=== PATIENT | male | born 1990 | race African-American/Black ===

== ENCOUNTER 2023-02-21 01:03 | Emergency (ER) | payer OTHER, SELFPAY ==
--- NOTE | ~2023-02-21 | CT_ITS ---
Non-contrast CT scan of the Abdomen and Pelvis Clinical indication: Flank pain Technique: 2.5 mm axial scans were obtained through the abdomen and pelvis without intravenous or or al contrast. Dose reduction technique was used on this scan by utilizing automated exposure control a nd iterative reconstruction technique. The dose-length product (DLP) was 775.43 mGy-cm. Findings: Images through the lung bases reveal no abnormalities. Small nonobstructing right renal stone measures 2 mm. No left renal stones seen. No ureteral stone or hydronephrosis on either side. The liver, spleen, pancreas, gallbladder, and adrenals appear normal. There is no aortic aneurysm. There is no evidence of bowel obstruction. No evidence for appendicitis. Images through the pelvis were performed. There is no evidence of ascites or lymphadenopathy. Urinary bladder unremarkable. No pelvic mass evident. Impression: Small nonobstructing right renal stones, as above. Reviewed, dictated and finalized at [facility]. Impression: Small nonobstructing right renal stones, as above.
[2023-02-21 01:13] VITALS: BP 128/79; PULSE 70; RESP 16; TEMP 36.6; O2SAT 97
[2023-02-21 01:17] LABS: Basophils Percent Auto 0.7 % (0.2-1.2); Eosinophils Absolute Auto 0.2 K/mm3 (0-0.3); Hematocrit 42.9 % (42.0-52.0); Hemoglobin 14.3 g/dL (14.0-18.0); Immature Granulocyte Absolute 0.01 K/mm3 (0.00-0.031); Immature Granulocyte Percent A 0.2 % (0-0.5); Lymphocytes Absolute Auto 3.38 K/mm3 (0.9-3.2); Lymphocytes Percent Auto 58.1 % (18.3-44.2); Mean Corpuscular HGB Conc 33.3 g/dl (32-36); Mean Corpuscular Hemoglobin 32.2 pg (26-34); Mean Corpuscular Volume 96.6 fl (80-100); Mean Platelet Volume 9.7 fl (7.4-10.4); Monocytes Absolute Auto 0.4 K/mm3 (0.1-0.6); Monocytes Percent Auto 7.6 % (2.6-8.5); Neutrophils Absolute Auto 1.7 K/mm3 (1.3-6.7); Neutrophils Percent Auto 29.4 % (45.5-73.1); Platelet Count Result 261 k/mm3 (150-375); Red Blood Count 4.44 M/mm3 (4.6-6.20); Red Cell Distribution Width 13.1 % (11.5-14.5); White Blood Count 5.8 K/mm3 (4.5-10.0)
[2023-02-21 01:27] LABS: Alanine Aminotransferase 32 U/L (6-50); Albumin Level 4.4 g/dL (3.5-5.1); Alkaline Phosphatase 65 U/L (38-126); Anion Gap 8 mmol/L (8-16); Aspartate Amino Transferase 33 U/L (17-59); Bilirubin,Total 0.5 mg/dL (0.2-1.3); Blood Urea Nitrogen 14 mg/dL (9-20); Calcium 8.8 mg/dL (8.4-10.2); Carbon Dioxide 25 mmol/L (22-30); Chloride 104 mmol/L (98-107); Estimated CRCL calculation 100 ml/min; Estimated Glomerular Filt Rate > 60; Glucose 111 mg/dL (65-110); Lipase 43 U/L (23-300); Potassium 3.7 mmol/L (3.4-5.0); Sodium 137 mmol/L (137-145)
[2023-02-21 01:28] LABS: Appearance Urine Clear (Clear); Bacteria Urine None Seen /hpf; Bilirubin Urine Negative (Negative); Blood Urine Negative (Negative); Color Urine Dark Yellow (Yellow); Glucose Urine UA Negative (Negative); Ketones Urine Negative (Negative); Leukocyte Esterase Ur Trace LEU/UL (Negative); Nitrate Urine Negative (Negative); Non Pathogenic Casts 0-2; Protein Urine Negative (Negative); RBC Urine 0-2 /hpf (0-2); Squamous Epithelial Cell Urine None seen /hpf (Few); WBC Urine 21-50 /hpf
[2023-02-21 01:28] LABS: Lactic Acid Reflex 0.8 mmol/L (0.7-2.0)
[2023-02-21 01:36] LABS: Specific Grav Ur 1.037 (1.001-1.035)
[2023-02-21 01:38] LABS: Add Urine Microscopic? YES
[2023-02-21 02:20] VITALS: BP 123/88; PULSE 60; RESP 18; TEMP 36.9; O2SAT 98
[2023-02-21 02:24] VITALS: BP 123/88; PULSE 60; TEMP 36.9; O2SAT 98
--- NOTE | 2023-02-21 02:27 | ED.ABDPAIN ---
HPI - Abdominal Pain General Chief Complaint: Abdominal Pain Stated Complaint: left flank pain Time Seen by Provider: 02/21/23 02:09 History of Present Illness HPI narrative: Patient presents to the emergency department with left-sided flank pain. Pain ongoing for the past couple days. Initially started mid back then radiated to the left side. Patient denies nausea and vomiting. Denies all other review of systems. He has not taken anything for the pain prior to arrival. Related Data Allergies Allergy/AdvReac Type Severity Reaction Status Date / Time metoclopramide [From Reglan] Allergy Flushing Verified 02/21/23 02:26 Review of Systems Review of Systems: Negative except for what is documented in the HPI Exam Narrative: GENERAL: Well-appearing, well-nourished, and in no acute distress. HEAD: Normocephalic, atraumatic. EYES: PERRLA and EOMI. ENT: Nares clear, no rhinorrhea or epistaxis. Mucous membranes moist. NECK: Supple. CHEST: Clear to auscultation. No respiratory distress. HEART: Regular rate and rhythm. ABDOMEN: Soft, nontender, nondistended. EXTREMITIES: Normal range of motion. No edema. SKIN: Warm, dry, no rash. NEURO: No focal deficits. Alert and oriented x3. PSYCH: Normal mood and affect. Course Course Emergency Course: Differential diagnosis includes but not limited to kidney stone, musculoskeletal pain, UTI Vital Signs Vital signs: Vital Signs Temperature 36.6 C 02/21/23 01:13 Pulse Rate 70 02/21/23 01:13 Respiratory Rate 16 02/21/23 01:13 Blood Pressure 128/79 02/21/23 01:13 Pulse Oximetry 97 02/21/23 01:13 Oxygen Delivery Room Air 02/21/23 01:13 Temperature 36.9 C 02/21/23 02:24 Pulse Rate 60 02/21/23 02:24 Respiratory Rate 18 02/21/23 02:20 Blood Pressure 123/88 02/21/23 02:24 Pulse Oximetry 98 02/21/23 02:24 Oxygen Delivery Room Air 02/21/23 02:20 MDM - Abdominal Pain Lab Data 02/21/23 01:12 02/21/23 01:12 Labs: Lab Results 02/21/23 02/21/23 Range/Units 01:12 01:16 WBC 5.8 (4.5-10.0) K/mm3 RBC 4.44 L (4.6-6.20) M/mm3 Hgb 14.3 (14.0-18.0) g/dL Hct 42.9 (42.0-52.0) % MCV 96.6 (80-100) fl MCH 32.2 (26-34) pg MCHC 33.3 (32-36) g/dl RDW 13.1 (11.5-14.5) % Plt Count 261 (150-375) k/mm3 MPV 9.7 (7.4-10.4) fl Immature Gran % (Auto) 0.2 (0-0.5) % Neut % (Auto) 29.4 L (45.5-73.1) % Lymph % (Auto) 58.1 H (18.3-44.2) % [place] % (Auto) 7.6 (2.6-8.5) % Eos % (Auto) 4.0 (0-4.4) % Baso % (Auto) 0.7 (0.2-1.2) % Lymph # (Auto) 3.38 H (0.9-3.2) K/mm3 [place] # (Auto) 0.4 (0.1-0.6) K/mm3 Eos # (Auto) 0.2 (0-0.3) K/mm3 Baso # (Auto) 0.0 (0.0-0.1) K/mm3 Abs Immat Gran (auto) 0.01 (0.00-0.031) K/mm3 Absolute Neuts (auto) 1.7 (1.3-6.7) K/mm3 Absolute Nucleated RBC 0.0 (0.0-0.012) K/mm3 Nucleated RBC % 0.0 (0.0-0.2) % Sodium 137 (137-145) mmol/L Potassium 3.7 (3.4-5.0) mmol/L Chloride 104 (98-107) mmol/L Carbon Dioxide 25 (22-30) mmol/L Anion Gap 8 (8-16) mmol/L BUN 14 (9-20) mg/dL Creatinine 1.10 (0.7-1.3) mg/dL Estim Creat Clear Calc 100 ml/min Estimated GFR > 60 (59 - ) Glucose 111 H (65-110) mg/dL Lactic Acid 0.8 (0.7-2.0) mmol/L Calcium 8.8 (8.4-10.2) mg/dL Total Bilirubin 0.5 (0.2-1.3) mg/dL AST 33 (17-59) U/L ALT 32 (6-50) U/L Alkaline Phosphatase 65 (38-126) U/L Total Protein 8.0 (6.3-8.2) g/dL Albumin 4.4 (3.5-5.1) g/dL Lipase 43 (23-300) U/L Urine Color Dark yellow (Yellow) Urine Appearance Clear (Clear) Urine pH 6.0 (5.0-9.0) Ur Specific [place] 1.037 H (1.001-1.035) Urine Protein Negative (Negative) mg/dL Urine Glucose (UA) Negative (Negative) mg/dL Urine Ketones Negative (Negative) mg/dL Ur Blood (Man) Negative (Negative) Urine Nitrate Negative (Negative) Urine Bilirubin Negative (Ne
[2023-02-21] MEDS: IBUPROFEN 600 MG TABLET PO (02:38)
[2023-02-21] MEDS: LIDOCAINE 5% PATCH 1 PATCH TRANSDERM (02:38)
[2023-02-21 04:14] VITALS: BP 135/87; PULSE 64; RESP 18; O2SAT 100
--- NOTE | 2023-02-21 04:45 | ED.ABDPAIN ---
HPI - Abdominal Pain General Chief Complaint: Abdominal Pain Stated Complaint: left flank pain Time Seen by Provider: 02/21/23 02:09 History of Present Illness HPI narrative: Please see initial note regarding patient's presentation and physical exam Related Data Allergies Allergy/AdvReac Type Severity Reaction Status Date / Time metoclopramide [From Reglan] Allergy Flushing Verified 02/21/23 02:26 Review of Systems Review of Systems: Only positive review of systems left flank pain Exam Narrative: Exam grossly benign Course Vital Signs Vital signs: Vital Signs Temperature 36.6 C 02/21/23 01:13 Pulse Rate 70 02/21/23 01:13 Respiratory Rate 16 02/21/23 01:13 Blood Pressure 128/79 02/21/23 01:13 Pulse Oximetry 97 02/21/23 01:13 Oxygen Delivery Room Air 02/21/23 01:13 Temperature 36.9 C 02/21/23 02:24 Pulse Rate 64 02/21/23 04:14 Respiratory Rate 18 02/21/23 04:14 Blood Pressure 135/87 02/21/23 04:14 Pulse Oximetry 100 02/21/23 04:14 Oxygen Delivery Room Air 02/21/23 02:20 MDM - Abdominal Pain MDM Narrative Medical decision making narrative: Patient's CT scan is consistent with cystitis with diffuse bladder wall thickening and adjacent stranding. Patient has right renal calculi that are incidental findings no other acute abnormalities on CT. Patient has elevated white blood cells in his urine. GC pending. Will DC with doxycycline Lab Data 02/21/23 01:12 02/21/23 01:12 Labs: Lab Results 02/21/23 02/21/23 Range/Units 01:12 01:16 WBC 5.8 (4.5-10.0) K/mm3 RBC 4.44 L (4.6-6.20) M/mm3 Hgb 14.3 (14.0-18.0) g/dL Hct 42.9 (42.0-52.0) % MCV 96.6 (80-100) fl MCH 32.2 (26-34) pg MCHC 33.3 (32-36) g/dl RDW 13.1 (11.5-14.5) % Plt Count 261 (150-375) k/mm3 MPV 9.7 (7.4-10.4) fl Immature Gran % (Auto) 0.2 (0-0.5) % Neut % (Auto) 29.4 L (45.5-73.1) % Lymph % (Auto) 58.1 H (18.3-44.2) % [place] % (Auto) 7.6 (2.6-8.5) % Eos % (Auto) 4.0 (0-4.4) % Baso % (Auto) 0.7 (0.2-1.2) % Lymph # (Auto) 3.38 H (0.9-3.2) K/mm3 [place] # (Auto) 0.4 (0.1-0.6) K/mm3 Eos # (Auto) 0.2 (0-0.3) K/mm3 Baso # (Auto) 0.0 (0.0-0.1) K/mm3 Abs Immat Gran (auto) 0.01 (0.00-0.031) K/mm3 Absolute Neuts (auto) 1.7 (1.3-6.7) K/mm3 Absolute Nucleated RBC 0.0 (0.0-0.012) K/mm3 Nucleated RBC % 0.0 (0.0-0.2) % Sodium 137 (137-145) mmol/L Potassium 3.7 (3.4-5.0) mmol/L Chloride 104 (98-107) mmol/L Carbon Dioxide 25 (22-30) mmol/L Anion Gap 8 (8-16) mmol/L BUN 14 (9-20) mg/dL Creatinine 1.10 (0.7-1.3) mg/dL Estim Creat Clear Calc 100 ml/min Estimated GFR > 60 (59 - ) Glucose 111 H (65-110) mg/dL Lactic Acid 0.8 (0.7-2.0) mmol/L Calcium 8.8 (8.4-10.2) mg/dL Total Bilirubin 0.5 (0.2-1.3) mg/dL AST 33 (17-59) U/L ALT 32 (6-50) U/L Alkaline Phosphatase 65 (38-126) U/L Total Protein 8.0 (6.3-8.2) g/dL Albumin 4.4 (3.5-5.1) g/dL Lipase 43 (23-300) U/L Urine Color Dark yellow (Yellow) Urine Appearance Clear (Clear) Urine pH 6.0 (5.0-9.0) Ur Specific [place] 1.037 H (1.001-1.035) Urine Protein Negative (Negative) mg/dL Urine Glucose (UA) Negative (Negative) mg/dL Urine Ketones Negative (Negative) mg/dL Ur Blood (Man) Negative (Negative) Urine Nitrate Negative (Negative) Urine Bilirubin Negative (Negative) Urine Urobilinogen 1.0 (<2.0) mg/dL Leukocyte Esterase Rfl Trace H (Negative) SUMMER/UL Urine RBC 0-2 (0-2) /hpf Urine WBC 21-50 H /hpf Ur Squamous Epith Cells None seen (Few) /hpf Urine Bacteria None seen /hpf Urine Casts 0-2 C. trachomatis (PCR) Not detected (NOT DETECTE) N. gonorrhoeae (PCR) Not detected (NOT DETECTE) Imaging Data Radiologist's impression: ITS Impressions Abdomen/Pelvis CT 02/21/23 06:11 Impr
[2023-02-21] MEDS: DOXYCYCLINE HYCLATE 100 MG TABLET PO (05:01)
[2023-02-21] MEDS: CIPROFLOXACIN 400 MG/D5W 200ML 200 ML 200 MG IVPB (05:06)
[2023-02-21 06:30] LABS: Chlamydia trachomatis NOT DETECTED (NOT DETECTE); Neisseria gonorrhoeae PCR NOT DETECTED (NOT DETECTE)
[2023-02-21 07:07] VITALS: BP 120/89; PULSE 89; RESP 16; O2SAT 100
== END 2023-02-21 07:07 | disposition home or self-care (01) ==
PROVIDERS: Emergency Provider Emergency Medicine
DX: N30.00 Acute cystitis without hematuria (principal); N20.0 Calculus of kidney
CPT/HCPCS: 36415; 74176; 80053; 81001; 83605; 83690; 85025; 87086; 87491; 87591; 96365; 99284; A9270; J0744

== ENCOUNTER 2023-04-22 11:58 | Emergency (ER) | payer SELFPAY ==
--- NOTE | ~2023-04-22 | CT_ITS ---
EXAMINATION: CT abdomen pelvis w con DATE: 04/22/2023 16:10 INDICATION: Left lower abdomen pain TECHNIQUE: Computed tomography (CT) of the abdomen and pelvis was performed with 100 cc Omnipaque 350 intravenous contrast. The dose-length product was 665.03 mGy-cm. Automated exposure control and iter ative reconstruction technique were employed. COMPARISON: CT dated 02/21/2023. FINDINGS: Lung bases unremarkable. Heart size normal. No significant pleural or pericardial effusion. The liver, spleen, pancreas, adrenal glands and left kidney are unremarkable. There are nonobstructi ng right renal stones measuring 3 mm or less. No ureteral stones or hydronephrosis. Nonobstructive bowel gas pattern. Gallbladder is present. No abnormal pelvic masses or fluid collecti ons. No evidence for diverticulitis. Normal appendix. IMPRESSION: 1. No acute abdominal abnormality. 2: Nonobstructing right nephrolithiasis. Reviewed, dictated and finalized at location A. [facility]
[2023-04-22 12:07] VITALS: BP 126/78; PULSE 104; RESP 20; TEMP 36.1; O2SAT 100
[2023-04-22 13:00] VITALS: BP 110/72; PULSE 69; RESP 18; TEMP 36.5; O2SAT 100
[2023-04-22 13:23] LABS: Basophils Percent Auto 0.3 % (0.2-1.2); Eosinophils Absolute Auto 0.1 K/mm3 (0-0.3); Hematocrit 42.2 % (42.0-52.0); Hemoglobin 14.1 g/dL (14.0-18.0); Immature Granulocyte Absolute 0.02 K/mm3 (0.00-0.031); Immature Granulocyte Percent A 0.2 % (0-0.5); Lymphocytes Absolute Auto 1.41 K/mm3 (0.9-3.2); Lymphocytes Percent Auto 15.4 % (18.3-44.2); Mean Corpuscular HGB Conc 33.4 g/dl (32-36); Mean Corpuscular Volume 95.7 fl (80-100); Mean Platelet Volume 9.8 fl (7.4-10.4); Monocytes Absolute Auto 0.6 K/mm3 (0.1-0.6); Monocytes Percent Auto 6.2 % (2.6-8.5); Neutrophils Percent Auto 76.9 % (45.5-73.1); Platelet Count Result 257 k/mm3 (150-375); Red Blood Count 4.41 M/mm3 (4.6-6.20); Red Cell Distribution Width 12.8 % (11.5-14.5); White Blood Count 9.1 K/mm3 (4.5-10.0)
[2023-04-22 13:35] LABS: Alanine Aminotransferase 34 U/L (6-50); Albumin Level 4.2 g/dL (3.5-5.1); Alkaline Phosphatase 59 U/L (38-126); Anion Gap 7 mmol/L (8-16); Aspartate Amino Transferase 34 U/L (17-59); Bilirubin,Total 0.4 mg/dL (0.2-1.3); Blood Urea Nitrogen 11 mg/dL (9-20); Calcium 8.3 mg/dL (8.4-10.2); Carbon Dioxide 24 mmol/L (22-30); Chloride 108 mmol/L (98-107); Estimated CRCL calculation 121 ml/min; Estimated Glomerular Filt Rate > 60; Glucose 92 mg/dL (65-110); Lipase 40 U/L (23-300); Potassium 4.2 mmol/L (3.4-5.0); Sodium 139 mmol/L (137-145)
[2023-04-22 13:48] LABS: Appearance Urine Clear (Clear); Bacteria Urine None Seen /hpf; Bilirubin Urine Negative (Negative); Blood Urine Negative (Negative); Color Urine Yellow (Yellow); Glucose Urine UA Negative (Negative); Ketones Urine Negative (Negative); Leukocyte Esterase Ur Trace LEU/UL (Negative); Need Manual Microscopic Reviewed; Nitrate Urine Negative (Negative); Non Pathogenic Casts 0-2; Protein Urine Negative (Negative); RBC Urine 0-2 /hpf (0-2); Specific Grav Ur 1.025 (1.001-1.035); Squamous Epithelial Cell Urine None seen /hpf (Few); pH Urine 7.5 (5.0-9.0)
[2023-04-22 13:49] LABS: Add Urine Microscopic? YES
[2023-04-22] MEDS: LACTATED RINGERS 1,000 ML 999 ML IV CONT (15:48)
--- NOTE | 2023-04-22 15:48 | ED.ABDPAIN ---
HPI - Abdominal Pain General Chief Complaint: Abdominal Pain Stated Complaint: abdominal pain/v/d Time Seen by Provider: 04/22/23 14:36 Source: patient and RN notes reviewed Mode of arrival: ambulatory Limitations: no limitations History of Present Illness HPI narrative: This is a 33 year old male who presents for evaluation of left lower abdominal pain. He states this morning he developed left lower abdominal pain with nausea, vomiting and diarrhea. He reports diarrhea was nonbloody and he had 1 episode. He also reports 1 episode of emesis but he is still nauseous. He states his pain is 8/10 currently. HE denies body aches, fever , chills, cough, sore thoat, runny nose. He denies sick contacts of new diet Related Data Allergies Allergy/AdvReac Type Severity Reaction Status Date / Time metoclopramide [From Reglan] Allergy Flushing Verified 04/22/23 11:59 Review of Systems Constitutional: Constitutional: Denies weakness Cardiovascular: Cardiovascular: Denies syncope, Denies rapid heart rate, Denies irregular heart rhythm, Denies leg edema and Denies dyspnea Respiratory: Respiratory: Denies chest congestion, Denies hemoptysis, Denies excessive phlegm production and Denies dyspnea Gastrointestinal: Gastrointestinal: Reports abdominal pain, Denies hematochezia, Reports diarrhea, Reports nausea and Reports vomiting Genitourinary: Genitourinary: Denies hematuria, Denies dysuria, Denies penile discharge and Denies testicular pain Musculoskeletal: Musculoskeletal: Denies joint swelling, Denies loss of height and Denies muscle weakness Neurologic: Denies syncope, Denies focal weakness and Denies weakness PMFSH Past Medical History Medical History (Updated 04/22/23 @ 17:39 by Hina Guido MD) Asthma Surgical History Surgical History (Updated 04/22/23 @ 15:49 by Hina Guido MD) No pertinent past surgical history Social History Social History (Updated 04/22/23 @ 15:49 by Hina Guido MD) Smoking status: Never smoker Exam Const: General: no acute distress and alert Nutritional Appearance: well nourished Orientation/consciousness: patient oriented x3 HENMT: Head: normal to inspection Ears: external ears normal Eyes: EOM: EOMs intact bilaterally Neck: Neck: normal visual inspection Chest: Chest palpation & inspection: normal inspection of the chest Resp: Effort & Inspection: normal respiratory effort Auscultation: clear to auscultation bilaterally Cardio: Rate: regular rate Rhythm: regular rhythm Heart sounds: no murmurs GI: GI Palp: Yes Soft to palpation, Yes Tenderness to palpation present (GI), No Guarding due to palpation present (GI) and No Rigid due to palpation Auscultation: normal bowel sounds Back/Spine/Pelvis: Back: no CVA tenderness Skin: General skin exam: normal color Rashes: no rashes Neuro: General: patient oriented x3, moves all extremities and CN's II-XI intact bilaterally Psych: Mental Status: mental status grossly normal Affect: normal affect Attitude: cooperative Course Vital Signs Vital signs: Vital Signs Temperature 97.0 F L 04/22/23 12:07 Pulse Rate 104 H 04/22/23 12:07 Respiratory Rate 20 04/22/23 12:07 Blood Pressure 126/78 04/22/23 12:07 Pulse Oximetry 100 04/22/23 12:07 Oxygen Delivery Room Air 04/22/23 12:07 Temperature 97.0 F L 04/22/23 12:07 Pulse Rate 104 H 04/22/23 12:07 Respiratory Rate 20 04/22/23 12:07 Blood Pressure 126/78 04/22/23 12:07 Pulse Oximetry 100 04/22/23 12:07 Oxygen Delivery Room Air 04/22/23 12:07 MDM - Abdominal Pain MDM Narrative Medical decision making narrative: labs ordered. CT abdomen and pelvis ordered for evaluation of LLQ. NS 1 liter bolus ordered and given along with zofran 4 mg IV and toradol 15 mg IV I Discussed with patient CT unremarkable UA is abnormal but patient does not have symptoms. I reviewed his last UA that culture was negative. Differential
[2023-04-22] MEDS: ONDANSETRON INJ 4 MG/2 ML VIAL IV PUSH (15:49)
[2023-04-22] MEDS: KETOROLAC 15 MG/ML VIAL (*BKC) IV PUSH (15:49)
[2023-04-22 17:51] VITALS: BP 113/74; PULSE 71; RESP 18; O2SAT 100
== END 2023-04-22 17:50 | disposition home or self-care (01) ==
PROVIDERS: Emergency Provider General Practice
DX: K52.9 Noninfective gastroenteritis and colitis, unspecified (principal); J45.909 Unspecified asthma, uncomplicated; N20.0 Calculus of kidney; Z87.442 Personal history of urinary calculi
CPT/HCPCS: 36415; 74177; 80053; 81001; 83690; 85025; 87086; 96361; 96374; 96375; 99284; J1885; J2405; J7120; Q9967

== ENCOUNTER 2023-06-04 20:56 | Emergency (ER) | payer SELFPAY ==
--- NOTE | ~2023-06-04 | CT_ITS ---
EXAMINATION: CT abdomen pelvis wo con DATE: 06/04/2023 23:42 INDICATION: Right flank pain TECHNIQUE: Computed tomography (CT) of the abdomen and pelvis was performed without intravenous contr ast. The dose-length product (DLP) was 652.38 mGy-cm. Automated exposure control and iterative recons truction technique were employed. COMPARISON: 04/22/2023 FINDINGS: The lung bases are clear. The heart size is normal. The liver, spleen, pancreas, gallbladde r, and adrenal glands are normal. There are nonobstructing stones of the right kidney lower pole anna uring up to 2 mm. The left kidney is unremarkable. There are no stones in the ureters or bladder. No hydronephrosis or hydroureter. No pathologically enlarged abdominal or pelvic lymph nodes are identif ied. No free intraperitoneal gas or evidence of bowel obstruction. The appendix is normal. IMPRESSION: 1. No CT correlate for the patient's symptoms. 2. Nonobstructing right nephrolithiasis. Reviewed, dictated and finalized at location F. [employer]
[2023-06-04 21:20] VITALS: BP 121/76; PULSE 78; RESP 16; TEMP 36.3; O2SAT 100
[2023-06-04 21:34] LABS: Basophils Absolute Auto 0.1 K/mm3 (0.0-0.1); Basophils Percent Auto 0.8 % (0.2-1.2); Eosinophils Absolute Auto 0.2 K/mm3 (0-0.3); Eosinophils Percent Auto 3.4 % (0-4.4); Hematocrit 44.1 % (42.0-52.0); Hemoglobin 14.1 g/dL (14.0-18.0); Immature Granulocyte Absolute 0.01 K/mm3 (0.00-0.031); Immature Granulocyte Percent A 0.2 % (0-0.5); Lymphocytes Absolute Auto 3.01 K/mm3 (0.9-3.2); Lymphocytes Percent Auto 46.3 % (18.3-44.2); Mean Corpuscular Hemoglobin 31.4 pg (26-34); Mean Corpuscular Volume 98.2 fl (80-100); Monocytes Absolute Auto 0.5 K/mm3 (0.1-0.6); Monocytes Percent Auto 8.2 % (2.6-8.5); Neutrophils Absolute Auto 2.7 K/mm3 (1.3-6.7); Neutrophils Percent Auto 41.1 % (45.5-73.1); Platelet Count Result 279 k/mm3 (150-375); Red Blood Count 4.49 M/mm3 (4.6-6.20); Red Cell Distribution Width 12.9 % (11.5-14.5); White Blood Count 6.5 K/mm3 (4.5-10.0)
[2023-06-04 21:41] LABS: Appearance Urine Clear (Clear); Bacteria Urine None Seen /hpf; Bilirubin Urine Negative (Negative); Blood Urine Negative (Negative); Color Urine Yellow (Yellow); Glucose Urine UA Negative (Negative); Ketones Urine Negative (Negative); Leukocyte Esterase Ur 1+ LEU/UL (Negative); Nitrate Urine Negative (Negative); Non Pathogenic Casts 0-2; Protein Urine Negative (Negative); RBC Urine 0-2 /hpf (0-2); Specific Grav Ur 1.016 (1.001-1.035); Squamous Epithelial Cell Urine None seen /hpf (Few); Urobilinogen Urine 0.2 mg/dL (<2.0); WBC Urine 21-50 /hpf
[2023-06-04 21:44] LABS: Add Urine Microscopic? YES
[2023-06-04 21:46] LABS: Alanine Aminotransferase 38 U/L (6-50); Albumin Level 4.4 g/dL (3.5-5.1); Alkaline Phosphatase 74 U/L (38-126); Anion Gap 7 mmol/L (8-16); Aspartate Amino Transferase 31 U/L (17-59); Bilirubin,Total 0.4 mg/dL (0.2-1.3); Blood Urea Nitrogen 11 mg/dL (9-20); Calcium 8.9 mg/dL (8.4-10.2); Carbon Dioxide 26 mmol/L (22-30); Chloride 105 mmol/L (98-107); Estimated CRCL calculation 121 ml/min; Estimated Glomerular Filt Rate > 60; Glucose 96 mg/dL (65-110); Potassium 3.9 mmol/L (3.4-5.0); Sodium 138 mmol/L (137-145)
[2023-06-04 23:18] VITALS: BP 111/74; PULSE 61; RESP 15; TEMP 36.4; O2SAT 100
[2023-06-05] MEDS: ACETAMINOPHEN 500 MG TABLET 1000 MG PO (00:14)
[2023-06-05] MEDS: KETOROLAC (*BKC) 60 MG/2 ML VIAL IM (00:15)
--- NOTE | 2023-06-05 00:41 | ED.ABDPAIN ---
HPI - Abdominal Pain General Chief Complaint: Abdominal Pain Stated Complaint: right flank pain, hx of stones Time Seen by Provider: 06/04/23 23:15 Source: patient Mode of arrival: ambulatory Limitations: no limitations History of Present Illness HPI narrative: Patient is a 33-year-old male who presents the ED with report of right flank pain. Patient reports pain began yesterday and was mild at first, but became more severe today. Worse with movement. Radiates around to his right lower abdomen. He reports similar pain in the past related to kidney stones. He reported 1 episode of diarrhea and a small amount of white penile discharge, denies nausea, vomiting, fevers, dysuria, hematuria. Denies concern for STDs. Denies heavy lifting or strenuous activity. He has not tried anything for pain. Related Data Allergies Allergy/AdvReac Type Severity Reaction Status Date / Time metoclopramide [From Reglan] Allergy Flushing Verified 04/22/23 11:59 Review of Systems Review of Systems: CONSTITUTIONAL: Denies fever, chills, or sweats. GASTROINTESTINAL: See HPI. GENITOURINARY: See HPI. MUSCULOSKELETAL: See HPI. All systems reviewed & are unremarkable except as noted in HPI and below PMFSH Past Medical History Medical History Asthma Surgical History Surgical History No pertinent past surgical history Social History Social History Smoking status: Never smoker Exam Narrative: GENERAL: Well appearing, well-nourished, non-toxic, in no acute distress. HEAD: Normocephalic, atraumatic. RESPIRATORY: Airway patent, respirations nonlabored. Clear to auscultation bilaterally, no rales, rhonchi, wheezing. CARDIOVASCULAR: Regular rate and rhythm. ABDOMINAL: Soft, mild tenderness in RLQ, nondistended. Normoactive BS. +CVA tenderness on R. MUSCULOSKELETAL: Moves all extremities. No gross deformities. Mild TTP over R lumbosacral region. SKIN: Warm, dry, normal color. NEURO: A&O X3. Speech clear. Cranial nerves II-XII grossly intact. Steady gait. No ataxic movements. PSYCHIATRIC: Appropriate mood and affect. Normal interaction. Course Vital Signs Vital signs: Vital Signs Temperature 97.3 F L 06/04/23 21:20 Pulse Rate 78 06/04/23 21:20 Respiratory Rate 16 06/04/23 21:20 Blood Pressure 121/76 06/04/23 21:20 Pulse Oximetry 100 06/04/23 21:20 Oxygen Delivery Room Air 06/04/23 21:20 Temperature 97.6 F 06/04/23 23:18 Pulse Rate 61 06/04/23 23:18 Respiratory Rate 15 06/04/23 23:18 Blood Pressure 111/74 06/04/23 23:18 Pulse Oximetry 100 06/04/23 23:18 Oxygen Delivery Room Air 06/04/23 21:20 MDM - Abdominal Pain MDM Narrative Medical decision making narrative: Patient presented to ED with right flank and abdominal pain. History of kidney stones. Vitals stable upon arrival. Patient had not tried anything for pain prior to arrival. CBC without leukocytosis. CMP unremarkable. Stable kidney function. Normal LFTs. UA with evidence for infection, 1+ leuk esterase, 21-50 WBC. Patient did report penile discharge. Will send for culture and treat as UTI. STD testing negative. CT abdomen pelvis obtained and showing R nephrolithiasis, no ureterolithiasis. No other acute abnormalities. Patient updated on imaging. He is feeling much better after Toradol and Tylenol in the ED. Discussed UTI and possibility of muscular strain, management of such, will provide Urology information for follow-up. Given return precautions. D/C in stable condition. Medical Records Attestation: I reviewed the patient's medical records. Lab Data Attestation: I reviewed the patient's lab results. 06/04/23 21:26 06/04/23 21:26 Labs: Lab Results 06/04/23 Range/Units 21:26 WBC 6.5 (4.5-10.0) K/
[2023-06-05 00:47] LABS: Trichomonas Vag PCR NOT DETECTED (NOT DETECTE)
[2023-06-05 01:09] LABS: Chlamydia trachomatis NOT DETECTED (NOT DETECTE); Neisseria gonorrhoeae PCR NOT DETECTED (NOT DETECTE)
[2023-06-05] MEDS: CEPHALEXIN 500 MG CAPSULE PO (01:24)
[2023-06-05 01:25] VITALS: BP 134/78; PULSE 67; RESP 15; TEMP 36.6; O2SAT 99
== END 2023-06-05 01:26 | disposition home or self-care (01) ==
PROVIDERS: Emergency Medicine; Emergency Provider Physician Assistant
DX: N30.00 Acute cystitis without hematuria (principal); N20.0 Calculus of kidney; J45.909 Unspecified asthma, uncomplicated
CPT/HCPCS: 36415; 74176; 80053; 81001; 85025; 87086; 87491; 87591; 87661; 96372; 99284; A9270; J1885

== ENCOUNTER 2024-08-26 02:15 | Emergency (ER) | payer SELFPAY ==
[2024-08-26] VITALS (10 sets, daily range): BP systolic 112–133; BP diastolic 79–88; PULSE 56–70; RESP 11–20; TEMP 36.5; O2SAT 94–100
--- NOTE | ~2024-08-26 | CT_ITS ---
Non-contrast CT scan of the Abdomen and Pelvis Clinical indication: Right flank pain Technique: 2.5 mm axial scans were obtained through the abdomen and pelvis without intravenous or or al contrast. Dose reduction technique was used on this scan by utilizing automated exposure control a nd iterative reconstruction technique. The dose-length product (DLP) was 808.63 mGy-cm. COMPARISON: 06/04/2023 Findings: Images through the lung bases reveal no abnormalities. Punctate nonobstructing right renal stones are present. No left renal stone. No ureteral stone or hyd ronephrosis on either side. The liver, spleen, pancreas, gallbladder, and adrenals appear normal. There is no aortic aneurysm. There is no evidence of bowel obstruction. Images through the pelvis were performed. There is no evidence of ascites or lymphadenopathy. Urinary bladder unremarkable. No pelvic mass seen. Impression: Punctate nonobstructing right renal stones. Reviewed, dictated and finalized at [facility]. Impression: Punctate nonobstructing right renal stones.
--- OUTSIDE RECORDS SUMMARY | 2024-08-26 02:17 | XMS_ITS | Clinical Summary ---
Author Organization [facility] Address [address] [place] [address] Care Team Providers Care Box Toe Maker Name Role Phone Unavailable Primary Care Provider Unavailabl e Source Comments [facility],non-owned Affiliates and Associated Physician Practices is amultiple site organization consisting of ambulatory clinics and hospital sitesin [place], [place], [place] and [place]. This disclosure is being madepursuant to the Care Everywhere program and may not contain all information available regarding this patient. Last updated 18.[facility] Allergies No known active allergies Medications * Be aware that medications may not be up to date on this document. Alwaysverify current medications with the patient. Medication Sig Dispensed Refills Start Date End Date Status cyclobenzaprine (FLEXERIL) 10 MG tablet Take 1 tablet by mouth 3 times daily as needed for Muscle Spasms 30 tablet 10/05/2018 Active acetaminophen (TYLENOL) 500 MG tablet Take 1 tablet by mouth every 6 hours as needed for Pain Maximum allowable Acetaminophen amount = 4 Grams (4000 mg) / 24 hours. 30 tablet 10/05/2018 Active ibuprofen (MOTRIN) 600 MG tablet Take 1 tablet by mouth every 6 hours as needed for Pain 30 tablet 10/05/2018 Active Immunizations Name Administration Dates Next Due TDAP (7yrs+) 10/05/2018,07/04/2015 Social History Tobacco Use Types Packs/Day Years Used Date Smoking Tobacco: Never Smokeless Tobacco: Never Alcohol Use Standard Drinks/Week Comments Yes 3.3 (1 standard drink = 0.6 oz p ure alcohol) Sex and Gender Information Value Date Recorded Sex Assigned at Not on file Gender Identity Not on file Sexual Orientation Not on file Last Filed Vital Signs Vital Sign Reading Time Taken Comments Blood Pressure 135/77 10/05/2018 11:07 PM CDT Pulse 80 10/05/2018 11:07 PM CDT Temperature 36.8 C (98.3 F) 10/05/2018 10:40 PM CDT Respiratory Rate 20 10/05/2018 11:07 PM CDT Oxygen Saturation 99% 10/05/2018 11:07 PM CDT Inhaled Oxygen Concentration - - Weight 99.8 kg (220 lb) 10/05/2018 10:45 PM CDT Height 188 cm (6' 2 ) 10/05/2018 10:45 PM CDT Body Mass Index 28.25 10/05/2018 10:45 PM CDT Plan of Treatment Health Maintenance Due Date Last Done Comments HIV SCREENING 01/06/2004 HEPATITIS C SCREENING 01/01/2007 HEPATITIS B VACCINE (1 of 3 - 19+ 3-dose series) 01/06/2008 COVID-19 VACCINE (2023-2 5 season) 2024 DEPRESSION SCREENING 05/21/2024 INFLUENZA VACCINE (Season Ended) 2025 DTAP/TDAP/TD VACCINES (3 - T d or Tdap) 10/05/2028 10/05/2018, 07/04/2015 ZOSTER VACCINE (1 of 2) 2039 HIB VACCINE Aged Out No longer eligi ble based on patient's age to complete this topic HPV VACCINE Aged Out No longer eligi ble based on patient's age to complete this topic MENINGOCOCCAL (Group B) VACCINE SHARED DECISION-MAKING Aged Out No longer eligible based on patient's age to complete this topic MENINGOCOCCAL GROUPS A/C/Y/W VACCINE Aged Out No longer eligible b ased on patient's age to complete this topic PNEUMOCOCCAL VACCINE Aged Out No long er eligible based on patient's age to complete this topic
--- OUTSIDE RECORDS SUMMARY | 2024-08-26 02:17 | XMS_ITS | Clinical Summary ---
Author Organization [facility] Address [address] [place] [address] Care Team Providers Care Sample Display Preparer Name Role Phone No, Physician Primary Care Provider [phone] Allergies Active Allergy Reactions Criticality Noted Date Comments Metoclopramide Anxiety,Other (See comments) Low 01/29/2020 Dizziness/Light Headed Medications baclofen (LIORESAL) 10 mg tabletIndications:h iccups Take 1 tablet (10 mg total) by mouth 3 (three) times a day 90 tablet 4 Active ondansetron ODT (ZOFRAN-ODT) 4 mg disintegrating tablet Take 1 tablet (4 mg total) by mouth every 8 (eight) hours as needed for nausea or vomiting 20 tablet 4 Active albuterol HFA (PROVENTIL HFA,VENTOLIN HFA,PROAIR HFA) 90 mcg/actuation inhalerIndications: Acute Asthma Attack Inhale 2 puffs every 4 (four) hours as needed for wheezing 1 each 4 Active fluticasone propionate (FLOVENT HFA) 110 mcg/actuation inhaler Inhale 1 puff 2 (two) times a day Rinse mouth with water after use. Do not swallow. 1 each 4 Active Medical History Medical History Date Comments Asthma Social History Tobacco Use Types Packs/Day Years Used Date Smoking Tobacco: Never Smokeless Tobacco: Never Personal Safety Answer Date Recorded Have you ever been in or are you currently in a harmful physical or emotional relationship or is someone making you feel afraid or unsafe? Denies 07/16/2023 Sex and Gender Information Value Date Recorded Sex Assigned at Not on file Legal Sex Male 8:50 PM BRAND AMBASSADOR PROMOTIONAL MODEL Gender Identity Not on file Sexual Orientation Not on file Obstetrics History Last Filed Vital Signs Vital Sign Reading Time Taken Comments Blood Pressure 127/86 07/16/2023 9:25 AM BRAND AMBASSADOR PROMOTIONAL MODEL Pulse 69 07/16/2023 9:25 AM BRAND AMBASSADOR PROMOTIONAL MODEL Temperature 36.9 C (98.4 F) 07/16/2023 9:25 AM BRAND AMBASSADOR PROMOTIONAL MODEL Respiratory Rate 16 07/16/2023 9:25 AM BRAND AMBASSADOR PROMOTIONAL MODEL Oxygen Saturation 95% 07/16/2023 9:25 AM BRAND AMBASSADOR PROMOTIONAL MODEL Inhaled Oxygen Concentration - - Weight 97.5 kg (215 lb) 07/16/2023 9:26 AM BRAND AMBASSADOR PROMOTIONAL MODEL Height 190.5 cm (6' 3 ) 07/16/2023 9:26 AM BRAND AMBASSADOR PROMOTIONAL MODEL Body Mass Index 26.87 07/16/2023 9:26 AM BRAND AMBASSADOR PROMOTIONAL MODEL Plan of Treatment Health Maintenance Due Date Last Done Comments Depression Screening 1989 Hepatitis C Screening 1989 Varicella Vaccines (1 of 2 - 13+ 2-dose series) 2002 Hepatitis B Screening 2007 Regular Well Visit/Exam 18-64 2007 Influenza Vaccine (Season Ended) 2025 DTaP/Tdap/Td Vaccine (7 - Td or Tdap) 10/05/2028 10/05/2018, 07/04/2015, 05/06/1991, Additional history exists HPV Vaccines Aged Out No longer eligi ble based on patient's age to complete this topic Pneumococcal vaccine <65 Aged Out No longer eligible based on patient's age to complete this topic Care Teams Sample Display Preparer Relationship Specialty Start Date End Date No, Physician PCP - General 07/16/23
--- OUTSIDE RECORDS SUMMARY | 2024-08-26 02:17 | XMS_ITS | Continuity of Care Document ---
Author Organization [facility] Address [address] [facility] [address] [place] [address] Phone Care Team Providers Care Diesel Engine Mechanic Apprentice Name Role Phone Mel Rodriguez MD Unavailable Unavailable Procedures Procedure Date Less Than 24 Hour Notice Of Appointment Cancellation GUEST SERVICES MANAGER Registration Fee Advance Directives Directive Yes / No Effective Date File Name No Information Encounters Encounter Description Practice Location Reason(s) For Visit Diagnoses Date Provider Providers Copied on Encounter [facility], [address] [address], [place], [place], [id number], tel:[phone] [facility] No Information 3 Jennifer Leal. [address], [place], [address], [place]. tel:[phone] [facility], [address], [id number], tel:[phone] [facility] No Information 3 [facility] Prov. . Referring Provider: Mel Rodriguez, [address], [place], [address]. tel:[phone] Family History Family Member Type Diagnosis Age At Onset No Information Payers Payer name Insurance type Covered democrat ID Authoriza tion(s) No Information Social History Type Description Quantity Date Captured Comments Sex Male Smoking Status No Information Chief Complaint And Reason For Visit No Information Reason For Referral Reason For Referral No Information History Of Present Illness Encounter Date Complaint History Of Prese nt Illness No Information Functional Status Date Functional Assessmen t No Information Instructions Date Instruction Additional Infor mation No Information Assessments Type Assessment Date No Information Patient Care Teams Name Effective Dates (start - stop) Status Members No Information
--- OUTSIDE RECORDS SUMMARY | 2024-08-26 02:17 | XMS_ITS | Referral Summary ---
Author Organization [facility] Address [address] [place] [address] Care Team Providers Care Site Planner Name Role Phone No, Physician Primary Care Provider [phone] Allergies Active Allergy Reactions Criticality Noted Date [...] Do not swallow. 1 each 4 Active Social History Tobacco Use Types Packs/Day Years [...] on file Legal Sex Male 8:50 PM FILTER CHANGER Gender Identity Not on file Sexual Orientation Not on file Last Filed Vital Signs Vital Sign Reading Time Taken Comments Blood Pressure 127/86 07/16/2023 9:25 AM FILTER CHANGER Pulse 69 07/16/2023 9:25 AM FILTER CHANGER Temperature 36.9 C (98.4 F) 07/16/2023 9:25 AM FILTER CHANGER Respiratory Rate 16 07/16/2023 9:25 AM FILTER CHANGER Oxygen Saturation 95% 07/16/2023 9:25 AM FILTER CHANGER Inhaled Oxygen Concentration - - Weight 97.5 kg (215 lb) 07/16/2023 9:26 AM FILTER CHANGER Height 190.5 cm (6' 3 ) 07/16/2023 9:26 AM FILTER CHANGER Body Mass Index 26.87 07/16/2023 9:26 AM FILTER CHANGER Plan of Treatment Not on file Care Teams Site Planner Relationship Specialty Start Date End Date No, Physician PCP - General 07/16/23
--- OUTSIDE RECORDS SUMMARY | 2024-08-26 02:17 | XMS_ITS | Clinical Summary ---
Author Organization [facility] Address [address] [place] [address] Care Team Providers Care Solution Specialist Name Role Phone None, Provider Primary Care Provider Unavaila ble Allergies Active Allergy Reactions Criticality Noted Date Comments Metoclopramide Unknown 01/25/2022 [place] like body was on fire Medications ondansetron (ZOFRAN ODT) 4 MG disintegrating tablet Take 1 tablet (4 mg total) by mouth every 8 (eight) hours as needed. 15 tablet 2 Active dicyclomine (BENTYL) 20 MG tablet Take 1 tablet (20 mg total) by mouth every 6 (six) hours. 30 tablet 2 Active Social History Tobacco Use Types Packs/Day Years Used Date Smoking Tobacco: Never Smokeless Tobacco: Never Alcohol Use Standard Drinks/Week Comments Not Currently 0 (1 standard drink = 0.6 oz pur e alcohol) Sex and Gender Information Value Date Recorded Sex Assigned at Not on file Legal Sex Male 5:01 PM CDT Gender Identity Not on file Sexual Orientation Not on file Last Filed Vital Signs Vital Sign Reading Time Taken Comments Blood Pressure 112/73 01/25/2022 7:23 AM CDT Pulse 74 01/25/2022 7:23 AM CDT Temperature 36.4 C (97.5 F) 01/25/2022 7:23 AM CDT Respiratory Rate 18 01/25/2022 7:23 AM CDT Oxygen Saturation 98% 01/25/2022 7:23 AM CDT Inhaled Oxygen Concentration - - Weight 97.5 kg (214 lb 15.2 oz) 01/25/2022 7:23 AM CDT Height 190.5 cm (6' 3 ) 01/25/2022 7:23 AM CDT Body Mass Index 26.87 01/25/2022 7:23 AM CDT Plan of Treatment Health Maintenance Due Date Last Done Comments Annual Physical 01/06/1992 Hepatitis C 2007 Hepatitis B Vaccines (1 of 3 - 19+ 3-dose series) 01/06/2008 COVID-19 Vaccine (3 - 2023-25 season) 2024 11/02/2021, 01/29/2021 DTaP, Tdap and Td Vaccines (7 - Td or Tdap) 10/05/2028 10/05/2018, 07/04/2015, 05/06/1991, Additional history exists HPV Vaccines Aged Out No longer eligi ble based on patient's age to complete this topic Meningococcal B Vaccine Aged Out No l onger eligible based on patient's age to complete this topic Meningococcal Vaccine Aged Out No jessee nikki eligible based on patient's age to complete this topic Pneumococcal Vaccine: Pediatrics (0 to 5 Years) and At-Risk Patients (6 to 64 Years) Aged Out No longer eligible based on patient's age to complete this topic RSV Immunizations Under 20 Months Aged Out No longer eligible based on patient's age to complete this topic Insurance [employer] Care Teams Solution Specialist Relationship Specialty Start Date End Date None, Provider, PCP - General 01/25/22
--- OUTSIDE RECORDS SUMMARY | 2024-08-26 02:17 | XMS_ITS | Clinical Summary ---
Author Organization [facility] Address [address] [place] [address] Phone Care Team Providers Care Bottle Washer Name Role Phone Unavailable Primary Care Provider Unavailabl e Allergies No known active allergies Medications No known medications Social History Tobacco Use Types Packs/Day Years Used Date Smoking Tobacco: Never Smokeless Tobacco: Never Alcohol Use Standard Drinks/Week Comments Not Currently 0 (1 standard drink = 0.6 oz pur e alcohol) Sex and Gender Information Value Date Recorded Sex Assigned at Not on file Legal Sex Male 1:27 PM ROUTE SALES REPRESENTATIVE Gender Identity Not on file Sexual Orientation Not on file Last Filed Vital Signs Vital Sign Reading Time Taken Comments Blood Pressure 118/78 05/19/2019 1:30 PM ROUTE SALES REPRESENTATIVE Pulse 88 05/19/2019 1:30 PM ROUTE SALES REPRESENTATIVE Temperature 36.6 C (97.9 F) 05/19/2019 1:30 PM ROUTE SALES REPRESENTATIVE Respiratory Rate 16 05/19/2019 1:30 PM ROUTE SALES REPRESENTATIVE Oxygen Saturation 98% 05/19/2019 1:30 PM ROUTE SALES REPRESENTATIVE Inhaled Oxygen Concentration - - Weight 94.3 kg (208 lb) 05/19/2019 1:30 PM ROUTE SALES REPRESENTATIVE Height 190.5 cm (6' 3 ) 05/19/2019 1:30 PM ROUTE SALES REPRESENTATIVE Body Mass Index 26 05/19/2019 1:30 PM ROUTE SALES REPRESENTATIVE Plan of Treatment Health Maintenance Due Date Last Done Comments HEPATITIS B VACCINES (1 of 3 - 19+ 3-dose series) 01/06/2008 INFLUENZA VACCINE (#1) 2023 DTAP/TDAP/TD VACCINES (3 - T d or Tdap) 10/05/2028 10/05/2018, 07/04/2015 HPV VACCINES Aged Out No longer eligi ble based on patient's age to complete this topic PNEUMOCOCCAL VACCINE 0-49 YEARS Aged Out No longer eligible b ased on patient's age to complete this topic Insurance [facility] MEDICAID
[2024-08-26 02:50] LABS: Basophils Absolute Auto 0.1 K/mm3 (0.0-0.1); Basophils Percent Auto 0.8 % (0.2-1.2); Eosinophils Absolute Auto 0.2 K/mm3 (0-0.3); Eosinophils Percent Auto 2.1 % (0-4.4); Hematocrit 41.3 % (42.0-52.0); Hemoglobin 13.6 g/dL (14.0-18.0); Immature Granulocyte Absolute 0.02 K/mm3 (0.00-0.031); Immature Granulocyte Percent A 0.3 % (0-0.5); Lymphocytes Absolute Auto 3.28 K/mm3 (0.9-3.2); Lymphocytes Percent Auto 43.1 % (18.3-44.2); Mean Corpuscular HGB Conc 32.9 g/dl (32-36); Mean Corpuscular Hemoglobin 31.9 pg (26-34); Mean Corpuscular Volume 96.7 fl (80-100); Monocytes Absolute Auto 0.6 K/mm3 (0.1-0.6); Monocytes Percent Auto 7.9 % (2.6-8.5); Neutrophils Absolute Auto 3.5 K/mm3 (1.3-6.7); Neutrophils Percent Auto 45.8 % (45.5-73.1); Platelet Count Result 307 k/mm3 (150-375); Red Blood Count 4.27 M/mm3 (4.6-6.20); Red Cell Distribution Width 12.9 % (11.5-14.5); White Blood Count 7.6 K/mm3 (4.5-10.0)
[2024-08-26 02:56] LABS: Add Urine Microscopic? YES; Appearance Urine Cloudy (Clear); Bilirubin Urine Negative (Negative); Blood Urine Negative (Negative); Color Urine Yellow (Yellow); Glucose Urine UA Negative (Negative); Ketones Urine Trace mg/dL (Negative); Leukocyte Esterase Ur 2+ LEU/UL (Negative); Nitrate Urine Negative (Negative); Non Pathogenic Casts 0-2; Protein Urine Trace mg/dL (Negative); RBC Urine 0-2 /hpf (0-2); Squamous Epithelial Cell Urine None Seen /hpf (Few); WBC Urine >100 /hpf (0-3); pH Urine 6.5 (5.0-9.0)
[2024-08-26 03:00] LABS: Bacteria Urine Trace /hpf
[2024-08-26 03:07] LABS: Alanine Aminotransferase 77 U/L (6-50); Albumin Level 4.4 g/dL (3.5-5.1); Alkaline Phosphatase 93 U/L (38-126); Anion Gap 10 mmol/L (4-12); Aspartate Amino Transferase 58 U/L (17-59); Bilirubin,Total 0.4 mg/dL (0.2-1.3); Blood Urea Nitrogen 13 mg/dL (9-20); Calcium 8.9 mg/dL (8.4-10.2); Carbon Dioxide 25 mmol/L (22-30); Chloride 105 mmol/L (98-107); Estimated CRCL calculation 91 ml/min; Estimated Glomerular Filt Rate > 60; Glucose 103 mg/dL (65-110); Lipase 58 U/L (23-300); Potassium 3.9 mmol/L (3.4-5.0); Sodium 140 mmol/L (137-145)
--- OUTSIDE RECORDS SUMMARY | 2024-08-26 04:13 | XMS_ITS | Clinical Summary ---
Author Organization [facility] Address [address] [place] [address] Phone Care Team Providers Care Typewriters Functional Tester Name Role Phone Unavailable Primary Care Provider [...] on file Legal Sex Male 1:27 PM TOOL AND DIE INSPECTOR Gender Identity Not on file Sexual Orientation Not on file Last Filed Vital Signs Vital Sign Reading Time Taken Comments Blood Pressure 118/78 05/19/2019 1:30 PM TOOL AND DIE INSPECTOR Pulse 88 05/19/2019 1:30 PM TOOL AND DIE INSPECTOR Temperature 36.6 C (97.9 F) 05/19/2019 1:30 PM TOOL AND DIE INSPECTOR Respiratory Rate 16 05/19/2019 1:30 PM TOOL AND DIE INSPECTOR Oxygen Saturation 98% 05/19/2019 1:30 PM TOOL AND DIE INSPECTOR Inhaled Oxygen Concentration - - Weight 94.3 kg (208 lb) 05/19/2019 1:30 PM TOOL AND DIE INSPECTOR Height 190.5 cm (6' 3 ) 05/19/2019 1:30 PM TOOL AND DIE INSPECTOR Body Mass Index 26 05/19/2019 1:30 PM TOOL AND DIE INSPECTOR Plan of Treatment Health Maintenance Due Date [...] patient's age to complete this topic Insurance [facility] MEDICAID
--- OUTSIDE RECORDS SUMMARY | 2024-08-26 04:13 | XMS_ITS | Continuity of Care Document ---
Author Organization [facility] Address [address] [facility] [address] [place] [address] Phone Care Team Providers Care Equal Opportunity Specialist Name Role Phone Mel Rodriguez MD Unavailable Unavailable Procedures Procedure Date Less Than 24 Hour Notice Of Appointment Cancellation MOTOR OVERHAULER Registration Fee Advance Directives Directive Yes / No Effective Date File Name No Information Encounters Encounter Description Practice Location Reason(s) For Visit Diagnoses Date Provider Providers Copied on Encounter [facility], [address] [address], [place], [place], [id number], tel:[phone] [facility] No Information 3 Jennifer Leal. [address], [place], [address], [place]. tel:[phone] [facility], [address], [id number], tel:[phone] [facility] [place] Information 3 [facility] Prov. . Referring Provider: Mel Rodriguez, [address], [place], [address]. tel:[phone] Family History Family Member Type Diagnosis Age At Onset No Information Payers Payer name Insurance type Covered alliance party ID Authoriza tion(s) No Information Social History [...]
--- OUTSIDE RECORDS SUMMARY | 2024-08-26 04:13 | XMS_ITS | Clinical Summary ---
Author Organization [facility] Address [address] [place] [address] Care Team Providers Care Office Clerk Routine Name Role Phone None, Provider Primary Care Provider Unavaila ble Allergies Active Allergy Reactions Criticality Noted Date Comments Metoclopramide Unknown 01/25/2022 [place] like body was on fire Medications ondansetron [...] this topic Insurance [employer] Care Teams Office Clerk Routine Relationship Specialty Start Date End Date None, Provider, PCP - General 01/25/22
--- OUTSIDE RECORDS SUMMARY | 2024-08-26 04:13 | XMS_ITS | Clinical Summary ---
Author Organization [facility] Address [address] [place] [address] Care Team Providers Care Lead Pharmacy Technician Name Role Phone No, Physician Primary Care Provider [phone] Allergies Active Allergy Reactions Criticality Noted Date [...] on file Legal Sex Male 8:50 PM VAMP MAKER Gender Identity Not on file Sexual Orientation Not on file Obstetrics History Last Filed Vital Signs Vital Sign Reading Time Taken Comments Blood Pressure 127/86 07/16/2023 9:25 AM VAMP MAKER Pulse 69 07/16/2023 9:25 AM VAMP MAKER Temperature 36.9 C (98.4 F) 07/16/2023 9:25 AM VAMP MAKER Respiratory Rate 16 07/16/2023 9:25 AM VAMP MAKER Oxygen Saturation 95% 07/16/2023 9:25 AM VAMP MAKER Inhaled Oxygen Concentration - - Weight 97.5 kg (215 lb) 07/16/2023 9:26 AM VAMP MAKER Height 190.5 cm (6' 3 ) 07/16/2023 9:26 AM VAMP MAKER Body Mass Index 26.87 07/16/2023 9:26 AM VAMP MAKER Plan of Treatment Health Maintenance Due Date [...] age to complete this topic Care Teams Lead Pharmacy Technician Relationship Specialty Start Date End Date No, Physician PCP - General 07/16/23
--- OUTSIDE RECORDS SUMMARY | 2024-08-26 04:13 | XMS_ITS | Referral Summary ---
Author Organization [facility] Address [address] [place] [address] Care Team Providers Care Lounge Car Attendant Name Role Phone No, Physician Primary Care Provider [phone] Allergies Active Allergy Reactions Criticality Noted Date [...] on file Legal Sex Male 8:50 PM ASSISTANT TERMINAL MANAGER Gender Identity Not on file Sexual Orientation Not on file Last Filed Vital Signs Vital Sign Reading Time Taken Comments Blood Pressure 127/86 07/16/2023 9:25 AM ASSISTANT TERMINAL MANAGER Pulse 69 07/16/2023 9:25 AM ASSISTANT TERMINAL MANAGER Temperature 36.9 C (98.4 F) 07/16/2023 9:25 AM ASSISTANT TERMINAL MANAGER Respiratory Rate 16 07/16/2023 9:25 AM ASSISTANT TERMINAL MANAGER Oxygen Saturation 95% 07/16/2023 9:25 AM ASSISTANT TERMINAL MANAGER Inhaled Oxygen Concentration - - Weight 97.5 kg (215 lb) 07/16/2023 9:26 AM ASSISTANT TERMINAL MANAGER Height 190.5 cm (6' 3 ) 07/16/2023 9:26 AM ASSISTANT TERMINAL MANAGER Body Mass Index 26.87 07/16/2023 9:26 AM ASSISTANT TERMINAL MANAGER Plan of Treatment Not on file Care Teams Lounge Car Attendant Relationship Specialty Start Date End Date No, Physician PCP - General 07/16/23
--- OUTSIDE RECORDS SUMMARY | 2024-08-26 04:13 | XMS_ITS | Clinical Summary ---
Author Organization [facility] Address [address] [place] [address] Care Team Providers Care Certified Diabetes Educator Name Role Phone Unavailable Primary Care Provider Unavailabl e Source Comments [facility],non-owned Affiliates and Associated Physician Practices is amultiple site organization consisting of ambulatory clinics and hospital sitesin [place], [place], [place] and [place]. This disclosure is being madepursuant to the Care Everywhere program and may not contain all information available regarding this patient. Last updated 18.[facility] Allergies No known active allergies Medications * [...]
--- NOTE | 2024-08-26 04:24 | ED_ITS ---
HPI - Abdominal Pain General Chief Complaint: Abdominal Pain Stated Complaint: Bilateral flank pain Time Seen by Provider: 08/26/24 03:47 Source: patient Mode of arrival: ambulatory Limitations: no limitations History of Present Illness HPI narrative: This is a 34-year-old male, with history of kidney stones, who presents to the emergency department complaining of bilateral flank pain, associated with dysuria for the past 2 days. The patient describes the pain as cramping, rated 9 to 10/10. He denies associated fevers, chills, nausea, vomiting, diarrhea or bleeding of any kind. He has no other complaints at this time. He denies similar symptoms an any recent sexual partners. He denies placement of any foreign object into the penis. Related Data Allergies Allergy/AdvReac Type Severity Reaction Status Date / Time metoclopramide (From Reglan) Allergy Flushing Verified 04/22/23 11:59 Review of Systems 2 Review of Systems: All systems reviewed & are unremarkable except as noted in HPI and below PMFSH Past Medical History Medical History Nephrolithiasis Asthma Surgical History Surgical History No pertinent past surgical history Social History Social History Smoking status: Never smoker Exam 2 Narrative: GENERAL: Well-developed, well-nourished, and in no acute distress. HEAD: Normocephalic, atraumatic. EYES: PERRLA and EOMI. CHEST: Clear to auscultation. No respiratory distress. No wheezes rales or rhonchi HEART: Regular rate and rhythm. No murmur heard. Normal peripheral pulses. ABDOMEN: Soft, suprapubic tenderness to palpation, without rebound or guarding, nondistended, normal active bowel sounds. Mild right CVA tenderness to palpation, no left CVA tenderness EXTREMITIES: Normal range of motion. No edema. SKIN: Warm, dry, no rash. NEURO: Alert and oriented x3. No focal deficit. Moving all 4 limbs spontaneously PSYCH: Normal mood and affect. Course Course Emergency Course: 06:00 - white blood cell count within normal limits. Hemoglobin slightly decreased at 13.6. Chemistries demonstrate mildly elevated ALT at 77 but is otherwise unremarkable. Urinalysis shows greater than 100 white blood cells and 2+ leukocyte esterase, consistent with urinary tract infection. Noncontrast CT abdomen pelvis by STAT Rad interpretation shows ?2 small right renal calcifications without evidence of hydronephrosis. This appears similar to previous examination of 06/04/2023. No left renal calculi or hydronephrosis is noted. No calculi are noted within the urinary bladder.? I suspect pyelonephritis is the cause of the patient's pain. Will discharge with Bactrim and recommendation for primary care follow-up. I discussed the findings and recommendations with the patient. Discussed return and emergency precautions including signs/symptoms of acute abdomen and intractable vomiting. The patient voiced understanding and agreement with the plan. All questions answered to his satisfaction. Vital Signs Vital signs: Vital Signs Pulse Rate 67 08/26/24 02:24 Respiratory Rate 11 L 08/26/24 02:24 Blood Pressure 129/85 08/26/24 02:24 Pulse Oximetry 98 08/26/24 02:24 Temperature 97.7 F 08/26/24 02:25 Pulse Rate 61 08/26/24 04:46 Respiratory Rate 17 08/26/24 04:46 Blood Pressure 127/85 08/26/24 04:46 Pulse Oximetry 100 08/26/24 04:46 Oxygen Delivery Room Air 08/26/24 02:25 MDM - Abdominal Pain MDM Narrative Medical decision making narrative: Plan: Labs, pain control, imaging, reassess Differential Diagnosis Differential diagnosis: Likely calculus of kidney and other (Pyelonephritis, UTI, mass, other) Lab Data 08/26/24 02:41 08/26/24 02:41 Labs: Lab Results 08/26/24 Range/Units 02:41 WBC 7.6 (4.5-10.0) K/mm3 RBC 4.27 L (4.6-6.20) M/mm3 Hgb 13.6 L (14.0-18.0) g/dL Hct 41.3 L (42.0-52.0) % MCV 96.7 (80-100) fl MCH 31.9 (26-34) pg MCHC 32.9 (32-36) g/dl RDW 12.9 (11.5-14.5) % Plt Count 307 (150-375) k/mm3 MPV 10.0 (7.4-10.4) fl Immature Gran % (Auto) 0.3 (0-0.5) % Neut % (Auto) 45.8 (45.5-73.1) % Lymph % (Auto) 43.1 (18.3-44.2) % [place] % (Auto) 7.9 (2.6-8.5) % Eos % (Auto) 2.1 (0-4.4) % Baso % (Auto) 0.8 (0.2-1.2) % Lymph # (Auto) 3.28 H (0.9-3.2) K/mm3 [place] # (Auto) 0.6 (0.1-0.6) K/mm3 Eos # (Auto) 0.2 (0-0.3) K/mm3 Baso # (Auto) 0.1 (0.0-0.1) K/mm3 Abs Immat Gran (auto) 0.02 (0.00-0.031) K/mm3 Absolute Neuts (auto) 3.5 (1.3-6.7) K/mm3 Absolute Nucleated RBC 0.000 (0.0-0.012) K/mm3 Nucleated RBC % 0.0 (0.0-0.2) % Sodium 140 (137-145) mmol/L Potassium 3.9 (3.4-5.0) mmol/L Chloride 105 (98-107) mmol/L Carbon Dioxide 25 (22-30) mmol/L Anion Gap 10 (4-12) mmol/L BUN 13 (9-20) mg/dL Creatinine 1.21 (0.7-1.3) mg/dL Estim Creat Clear Calc 91 ml/min Estimated GFR > 60 (59 - ) Glucose 103 (65-110) mg/dL Calcium 8.9 (8.4-10.2) mg/dL Total Bilirubin 0.4 (0.2-1.3) mg/dL AST 58 (17-59) U/L ALT 77 H (6-50) U/L Alkaline Phosphatase 93 (38-126) U/L Total Protein 8.0 (6.3-8.2) g/dL Albumin 4.4 (3.5-5.1) g/dL Lipase 58 (23-300) U/L Urine Color Yellow (Yellow) Urine Appearance Cloudy H (Clear) Urine pH 6.5 (5.0-9.0) Ur Specific [place] 1.030 (1.001-1.035) Urine Protein Trace (Negative) mg/dL Urine Glucose (UA) Negative (Negative) mg/dL Urine Ketones Trace H (Negative) mg/dL Ur Blood (Man) Negative (Negative) Urine Nitrate Negative (Negative) Urine Bilirubin Negative (Negative) Urine Urobilinogen 1.0 (<2.0) mg/dL Leukocyte Esterase Rfl 2+ H (Negative) SUMMER/UL Urine RBC 0-2 (0-2) /hpf Urine WBC >100 H (0-3) /hpf Ur Squamous Epith Cells None seen (Few) /hpf Urine Bacteria Trace /hpf Urine Casts 0-2 Discharge Plan Discharge Clinical Impression: Abdominal pain, suprapubic, Acute pyelonephritis Patient Disposition: Home Condition: Stable Instructions: Antibiotic Form, Kidney Infection (ED) Additional Instructions: You were seen in the emergency department. Your labs shows changes consistent with a urinary tract infection. They or however not concerning for liver or kidney injury. A CT scan was not concerning for a kidney stone. I recommend oral antibiotics and follow-up with your primary care doctor If you develop severe abdominal pain, abdominal pain with fevers, persistent vomiting, or if you have other emergent concerns for life, limb, or eyesight, return to the emergency department. Patient Language: Belarusian Prescriptions: New sulfamethoxazole-trimethoprim 800-160 mg tablet 1 tablet PO Q12H 14 Days Qty: 28 0RF No Action ondansetron 4 mg tablet,disintegrating 4 mg PO Q6H PRN (Reason: nausea and vomiting) Qty: 14 0RF doxycycline hyclate 100 mg capsule 100 mg PO DAILY Qty: 14 0RF ondansetron 4 mg tablet,disintegrating 4 mg PO Q8H PRN (Reason: nausea and vomiting) Qty: 20 0RF tramadol 50 mg tablet 50 mg PO Q6H MDD 4 tabs PRN (Reason: pain) Qty: 14 0RF cephalexin 500 mg capsule 500 mg PO Q6H 7 Days Qty: 28 0RF cyclobenzaprine 5 mg tablet 5 mg PO TID PRN (Reason: muscle spasm) Qty: 5 0RF Follow-up/Referrals: UNKNOWN,DOCTOR [Primary Care Provider] - 1 Week Time of Disposition: 06:08
[2024-08-26] MEDS: KETOROLAC 30 MG/ML VIAL (*BKC) IV PUSH (04:39)
[2024-08-26] MEDS: SULFAMETHOXAZOLE/TRIMETHOPRIM 800/160 MG DS TABLET 1 TAB PO (04:39)
== END 2024-08-26 06:23 | disposition home or self-care (01) ==
PROVIDERS: Emergency Provider Preventive Medicine Aerospace Medicine
DX: R10.30 Lower abdominal pain, unspecified (principal); N12 Tubulo-interstitial nephritis, not specified as acute or chronic; J45.909 Unspecified asthma, uncomplicated
CPT/HCPCS: 36415; 74176; 80053; 81001; 83690; 85025; 87086; 96374; 99284; A9270; J1885